=== PATIENT | female | born 2000 | race Caucasian/White ===

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

== ENCOUNTER 2022-03-21 18:56 | Emergency (ER) | payer MEDICAID ==
--- NOTE | 2022-03-21 20:37 | ERPHSYRPT ---
- History of Present Illness Time Seen by Provider: 03/21/22 20:12 Source: patient Exam Limitations: no limitations Patient Subjective Stated Complaint: Patient states " I woke up yesterday with a sorethroat, cough, fatigue and body aches." States she was around 5 family m embers that tested + for COVID over . Triage Nursing Assessment: Patient A/O times 4. Patient able to follow instructions without difficulty. Patient with respiratory complaints of cough, sorethroat, body aches and chills. Denies any SOB. Denies any chest pain. Denies any N/V. Denies any loose stools. Lungs clear bilateral A/P throughout. Denies any nasal drainage. States has been exposed to COVID over [employer]. Physician History: Patient is a 21-year-old female presents emergency department for evaluation of sore throat cough fatigue and body aches. Cough is intermittent and dry. Symptoms have been ongoing for approximately 1-2 days. Patient reports exposure to COVID. Patient was at a [employer] dinner and family members tested positive for lower sick of COVID. Patient otherwise healthy. No rash. Temperature 100.1 today. Patient voices no other complaints concerns at this time. Portions of this note were created with voice recognition technology. There may be grammatical, spelling, punctuation or sound alike errors Timing/Duration: today Severity: moderate Modifying Factors: Improves With: nothing Associated Symptoms: denies symptoms Allergies/Adverse Reactions: No Known Drug Allergies Allergy (Unverified 03/21/22 19:32) Home Medications: No Reportable Medications [No Reported Medications] 03/21/22 [History] Hx Tetanus, Diphtheria Vaccination/Date Given: Yes Hx Influenza Vaccination/Date Given: No Hx Pneumococcal Vaccination/Date Given: No Immunizations Up to Date: Yes Travel Risk - International Travel Have you traveled outside of the country in past 3 weeks: No - Coronavirus Screening Are you exhibiting any of the following symptoms?: Yes Symptoms: Fever, Cough: New Onset, Headaches/Body Aches/Fatigue Close contact with a COVID-19 positive Pt in past 14-21 Days: Yes - Vaccine Status Have you recieved a Covid-19 vaccination: Yes Forensic Structural Engineer: Moderna - Vaccination Dates Date of 2cond Vaccination (if applicable): . - Review of Systems Constitutional: No Symptoms Eyes: No Symptoms Ears, Nose, & Throat: No Symptoms Respiratory: No Symptoms, No Cough, No Dyspnea Cardiac: No Symptoms, No Chest Pain, No Edema, No Syncope Abdominal/Gastrointestinal: No Symptoms, No Abdominal Pain, No Nausea, No Vomiting, No Diarrhea Genitourinary Symptoms: No Symptoms, No Dysuria Musculoskeletal: No Symptoms, No Back Pain, No Neck Pain Skin: No Symptoms, No Rash Neurological: No Symptoms, No Dizziness, No Focal Weakness, No Sensory Changes Psychological: No Symptoms Endocrine: No Symptoms Hematologic/Lymphatic: No Symptoms Immunological/Allergic: No Symptoms All Other Systems: Reviewed and Negative - Past Medical History Pertinent Past Medical History: No Neurological History: No Pertinent History ENT History: No Pertinent History Cardiac History: No Pertinent History Respiratory History: No Pertinent History Endocrine Medical History: No Pertinent History Musculoskeletal History: No Pertinent History GI Medical History: No Pertinent History History: No Pertinent History Psycho-Social History: No Pertinent History Female Reproductive Disorders: No Pertinent History Other Medical History: 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 - Past Surgical History Past Surgical History: No Neuro Surgical History: No Pertinent History Cardiac: No Pertinent History Respiratory: No Pertinent History Gastrointestinal: No Pertinent History Genitourinary: No Pertinent History Musculoskeletal: No Pertinent History Female Surgical History: No Pertinent History Other Surgical History: tubes to ears - Social History Smoking Status: Never smoker Exposure to second hand smoke: No Drug Use: none Patient Lives Alone: No - Female History Hx Last Menstrual Period: 03/15/2022 Hx Now: No - Nursing Vital Signs Nursing Vital Signs: Initial Vital Signs Temperature 100.1 F 03/21/22 18:57 Pulse Rate 102 H 03/21/22 18:57 Respiratory Rate 20 03/21/22 18:57 Blood Pressure 153/70 03/21/22 18:57 O2 Sat by Pulse Oximetry 95 03/21/22 18:57 Pain Scale Pain Intensity 4 - Physical Exam General Appearance: no apparent distress, alert Eye Exam: PERRL/EOMI, eyes nml inspection Ears, Nose, Throat Exam: normal ENT inspection, TMs normal, pharynx normal, moist mucous membranes Neck Exam: normal inspection, non-tender, supple, full range of motion Respiratory Exam: normal breath sounds, lungs clear, No respiratory distress Cardiovascular Exam: regular rate/rhythm, normal heart sounds, normal peripheral pulses Gastrointestinal/Abdomen Exam: soft, normal bowel sounds, No tenderness, No mass Back Exam: normal inspection, normal range of motion, No CVA tenderness, No vertebral tenderness Extremity Exam: normal inspection, normal range of motion, pelvis stable Neurologic Exam: alert, oriented x 3, cooperative, normal mood/affect, nml cerebellar function, nml station & gait, sensation nml, No motor deficits Skin Exam: normal color, warm, dry, No rash Lymphatic Exam: No adenopathy SpO2 Interpretation: normal SpO2: 96 O2 Delivery: Room Air - Course Nursing assessment & vital signs reviewed: Yes Lab/Rad Data: Laboratory Results 03/21/22 03/21/22 Range/Units 19:50 19:50 Influenza Type A Ag NEGATIVE (NEGATIVE) Influenza Type B Ag NEGATIVE (NEGATIVE) RSV (PCR) NEGATIVE (Negative) SARS-CoV-2 (PCR) NEGATIVE (NEGATIVE) Group A Strep Antibody NOT DETECTED (NEGATIVE) - Progress Progress: improved Progress Note: Viral panel and strep test negative. No indication for further work-up. Patient appears well in no acute distress. Supportive care only. Tylenol Motrin as needed. Patient instructed on good hydration. Mother at bedside. They voiced no other complaints or concerns at this time. Mother agrees to follow-up with primary care doctor within 48 hours for evaluation. Portions of this note were created with voice recognition technology. There may be grammatical, spelling, punctuation or sound alike errors 03/21/22 20:46 Counseled pt/family regarding: lab results, diagnosis, need for follow-up - Departure Departure Disposition: Home Clinical Impression: Viral syndrome Condition: Stable Critical Care Time: No Referrals: MARVIN TINAJERO [Primary Care Provider] - Follow up/PCP as directed Additional Instructions: Discharge/Care Plan LANEBILLYROSENDA MEGAN was seen on 03/21/22 in the Emergency Room. The patient was counseled regarding Diagnosis,Lab results, Imaging studies, need for follow up and when to return to the Emergency Room. Prescriptions given: Discharge Note I have spoken with the patient and/or caregivers. I have explained the patient's condition, diagnosis and treatment plan based on the information available to me at this time. I have answered the patient's and/or caregiver's questions and addressed any concerns. The patient and/or caregivers have as good understanding of the patient's diagnosis, condition and treatment plan as can be expected at this point. The vital signs have been stable. The patient's condition is stable and appropriate for discharge from the emergency department. The patient will pursue further outpatient evaluation with the primary care physician or other designated or consulting physician as outlined in the discharge instructions. The patient and/or caregivers are agreeable to this plan of care and follow-up instructions have been explained in detail. The patient and/or caregivers have received these instruction. The patient/and or caregivers are aware that any significant change in condition or worsening of symptoms should prompt an immediate return to this or the closest emergency department or call 911.
[2022-03-21 20:39] LABS: INFLUENZA A NEGATIVE (NEGATIVE); INFLUENZA B NEGATIVE (NEGATIVE); RESPIRATORY SYNCTIAL VIRUS NEGATIVE (Negative); SARS-CoV-2 Xpert Express NEGATIVE (NEGATIVE)
[2022-03-21 21:14] VITALS: BP 107/57; O2SAT 97
[2022-03-21 21:24] VITALS: PULSE 93
== END 2022-03-21 21:10 | disposition home or self-care (01) ==
LOC: ED 18:56
DX: B34.9 Viral infection, unspecified (principal); J02.9 Acute pharyngitis, unspecified; R05.1 Acute cough; R53.83 Other fatigue; M79.10 Myalgia, unspecified site; Z20.822 Contact with and (suspected) exposure to COVID-19; R50.9 Fever, unspecified
CPT/HCPCS: 0241U; 87651; 99282

== ENCOUNTER 2024-03-06 12:44 | Emergency (ER) | payer MEDICAID ==
[2024-03-06] MEDS: BABY ASPIRIN 81 MG CHEW PO ONE (13:12)
[2024-03-06] MEDS ORDERED: BABY ASPIRIN 81 MG CHEW ONE (13:12)
[2024-03-06 13:18] LABS: Absolute Neutrophil Ct (ANC) 6.51 x10^3/uL (1.56-6.13); BASOPHIL % 0.4 % (0.1-1.2); Basophil (Absolute #) 0.03 x10^3/uL (0.01-0.08); Eosinophil (Absolute #) 0 x10^3/uL (0.04-0.36); Hematocrit 41.5 % (34.1-44.9); Hemoglobin 13.9 g/dL (11.2-15.7); IMMATURE GRAN # 0.02 x10^3u/L (0.001-0.031); IMMATURE GRAN % 0.2 % (0.001-0.429); Lymphocyte (Absolute #) 1.21 x10^3/uL (1.18-3.74); Lymphocytes % 14.8 % (19.3-51.7); Mean Cell Volume 84.3 fL (79.4-94.8); Mean Corpuscular Hemoglobin 28.3 pg (25.6-32.2); Mean Corpuscular Hgb Concent. 33.5 g/dL (32.2-35.5); Mean Platelet Volume 11.3 fL (9.4-12.3); Monocyte (Absolute #) 0.38 x10^3/uL (0.24-0.86); Monocytes % 4.7 % (4.7-12.5); Neutrophil % 79.9 % (34.0-71.1); Platelet Count 360 x10^3/uL (182-369); Red Blood Count 4.92 x10^6/uL (3.93-5.22); Red Cell Distribution Width 12.8 % (11.7-14.4); White Blood Count 8.2 x10^3/uL (3.98-10.04)
--- NOTE | 2024-03-06 13:24 | ERPHSYRPT ---
- History of Present Illness Time Seen by Provider: 03/06/24 12:59 Historian: patient Exam Limitations: no limitations Patient Subjective Stated Complaint: Chest pain, high blood pressure Triage Nursing Assessment: 23 yr old female pt arrives to ED via POV. Pt presesnts with complaints of chest pain and high blood pressure. Pt states that she was recently seen by Rekha Covington NP and was told about her blood pressure being high. Pt has not had any other issues until she was at work today and started having chest pain. Pt is alert, oriented and not in distress. Physician History: 23-year-old healthy female presented in the ER with complaints of elevated blood pressure and chest pain. Patient reports she has been dealing with high blood pressure for last couple of weeks and her blood pressure was 150s earlier today and started to have some chest discomfort across the chest with some radiation to the left axillary area almost an hour prior to arrival at home. Chest pain started to improve. Denies any associated difficulty breathing or palpitations. Patient was seen at primary care office few days ago with high blood pressure and was recommended to monitor at home. Patient blood pressure on presentation in the ER is 129 systolic. No fever chills or cough reported. Nitro Today/Relief: no nitro taken today Aspirin Treatment Today: no aspirin today Allergies/Adverse Reactions: No Known Drug Allergies Allergy (Unverified 03/06/24 12:54) Hx Tetanus, Diphtheria Vaccination/Date Given: Yes Hx Influenza Vaccination/Date Given: No Hx Pneumococcal Vaccination/Date Given: No Immunizations Up to Date: Yes Travel Risk - International Travel Have you traveled outside of the country in past 3 weeks: No - Emerging Infectious Disease Are you exhibiting symptoms associated with any current EIDs: No - Review of Systems Constitutional: No Symptoms Eyes: No Symptoms Ears, Nose, & Throat: No Symptoms Respiratory: No Symptoms Cardiac: Chest Pain Abdominal/Gastrointestinal: No Symptoms Genitourinary Symptoms: No Symptoms Musculoskeletal: No Symptoms Skin: No Symptoms Neurological: No Symptoms Psychological: No Symptoms Endocrine: No Symptoms Hematologic/Lymphatic: No Symptoms - Past Medical History Pertinent Past Medical History: No Neurological History: No Pertinent History ENT History: No Pertinent History Cardiac History: Hypertension Respiratory History: No Pertinent History Endocrine Medical History: No Pertinent History Musculoskeletal History: No Pertinent History GI Medical History: No Pertinent History History: No Pertinent History Psycho-Social History: No Pertinent History Female Reproductive Disorders: No Pertinent History Other Medical History: 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, 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 - Past Surgical History Past Surgical History: Yes Neuro Surgical History: No Pertinent History Cardiac: No Pertinent History Respiratory: No Pertinent History Gastrointestinal: No Pertinent History Genitourinary: No Pertinent History Musculoskeletal: No Pertinent History Female Surgical History: No Pertinent History Other Surgical History: tubes to ears - Female History Hx Last Menstrual Period: 02/28/24 Hx Now: (unkn) - Social History Smoking Status: Never smoker Exposure to second hand smoke: No Drug Use: none Patient Lives Alone: No - Social Determinants of Health Will the patient participate in the screening: Declined to provide - Nursing Vital Signs Nursing Vital Signs: Initial Vital Signs Pulse Rate 114 H 03/06/24 12:53 Respiratory Rate 20 03/06/24 12:53 Blood Pressure 155/88 03/06/24 12:53 O2 Sat by Pulse Oximetry 97 03/06/24 12:53 Pain Scale Pain Intensity 0 - Physical Exam General Appearance: no apparent distress, alert, anxiety Eye Exam: PERRL/EOMI Ears, Nose, Throat Exam: normal ENT inspection, pharynx normal, moist mucous membranes Neck Exam: normal inspection, non-tender, supple, full range of motion Respiratory Exam: normal breath sounds, lungs clear Cardiovascular Exam: regular rate/rhythm, normal heart sounds Gastrointestinal/Abdomen Exam: soft, normal bowel sounds, No tenderness Back Exam: normal inspection, normal range of motion Extremity Exam: normal range of motion Neurologic Exam: alert, oriented x 3, cooperative, staffing and scheduling coordinator II-XII nml as tested Skin Exam: normal color SpO2 Interpretation: normal SpO2: 96 O2 Delivery: Room Air - Course EKG Interpreted by Me: RATE ([id number]), Sinus Rhythm, NORMAL AXIS, NORMAL INTERVALS, NORMAL QRS Ordered Tests: Active Orders 24 hr Category Date Time Status Oral Therapist STAT Care 03/06/24 13:08 Active EKG-ER Only STAT Care 03/06/24 13:08 Active CHEST 1 VIEW (PORTABLE) Stat Exams 03/06/24 13:08 Completed CBC W DIFF Stat Lab 03/06/24 13:10 Completed CMP Stat Lab 03/06/24 13:10 Completed D-DIMER QUANTITATIVE Stat Lab 03/06/24 13:26 Completed HCG QUALITATIVE, URINE Stat Lab 03/06/24 14:12 Completed NT PRO BNPII Stat Lab 03/06/24 13:10 Completed TROPONIN Q4H Lab 03/06/24 13:10 Completed TROPONIN Q4H Lab 03/06/24 15:55 Completed TROPONIN Q4H Lab 03/06/24 21:15 Ordered Medication Summary Discontinued Medications Generic Name Dose Route Start Last Admin Trade Name Casandra PRN Reason Stop Dose Admin Al Hydrox/Mg Hydrox/Simethicone Confirm 03/06/24 15:17 Mag Hydrox/Al Hydrox/Simeth 30 Ml Udcup Administered 03/06/24 15:18 Dose 30 ml .ROUTE .STK-MED ONE Aspirin 324 mg 03/06/24 13:08 03/06/24 13:12 Aspirin 81 Mg Tab.Chew PO 03/06/24 13:09 324 mg STAT ONE Administration Aspirin Confirm 03/06/24 13:12 Aspirin 81 Mg Tab.Chew Administered 03/06/24 13:13 Dose 324 mg .ROUTE .STK-MED ONE Lidocaine HCl Confirm 03/06/24 15:17 Lidocaine Hcl 2% Viscous 15 Ml Udcup Administered 03/06/24 15:18 Dose 15 ml .ROUTE .STK-MED ONE Magnesium Hydroxide 45 ml 03/06/24 15:05 03/06/24 15:19 Mag Hydrx/Alum Hyd/Simeth/Lido 45 Ml Bottle PO 03/06/24 15:06 45 ml STAT ONE Administration Lab/Rad Data: Laboratory Result Diagrams 03/06/24 13:10 03/06/24 13:10 Laboratory Results 03/06/24 03/06/24 03/06/24 Range/Units 15:55 14:12 13:26 WBC (3.98-10.04) x10^3/uL RBC (3.93-5.22) x10^6/uL Hgb (11.2-15.7) g/dL Hct (34.1-44.9) % MCV (79.4-94.8) fL MCH (25.6-32.2) pg MCHC (32.2-35.5) g/dL RDW (11.7-14.4) % Plt Count (182-369) x10^3/uL MPV (9.4-12.3) fL Gran % (34.0-71.1) % Immature Gran % (Auto) (0.001-0.429) % Nucleat RBC Rel Count (0.00-0.2) % Eos # (Auto) (0.04-0.36) x10^3/uL Immature Gran # (Auto) (0.001-0.031) x10^3u/L Absolute Lymphs (auto) (1.18-3.74) x10^3/uL Absolute Monos (auto) (0.24-0.86) x10^3/uL Absolute Nucleated RBC (0.00-0.012) x10^3u/L Lymphocytes % (19.3-51.7) % Monocytes % (4.7-12.5) % Eosinophils % (0.7-5.8) % Basophils % (0.1-1.2) % Absolute Granulocytes (1.56-6.13) x10^3/uL Basophils # (0.01-0.08) x10^3/uL D-Dimer 0.25 (0.0-0.50) mg/L Sodium (135-145) mmol/L Potassium (3.5-5.1) mmol/L Chloride (98-107) mmol/L Carbon Dioxide (22-30) mmol/L Anion Gap (5-15) MEQ/L BUN (7-17) mg/dL Creatinine (0.52-1.04) mg/dL Estimated GFR ML/MIN Glucose (74-106) mg/dL Calcium (8.4-10.2) mg/dL Total Bilirubin (0.2-1.3) mg/dL AST (14-36) U/L ALT (0-35) U/L Alkaline Phosphatase (38-126) U/L Troponin I < 0.012 (0.000-0.033) ng/mL NT-Pro-B Natriuret Pep (<300) pg/mL Serum Total Protein (6.3-8.2) g/dL Albumin (3.5-5.0) g/dL Urine HCG, Qual NEGATIVE (NEGATIVE) 03/06/24 03/06/24 03/06/24 Range/Units 13:10 13:10 13:10 WBC 8.2 (3.98-10.04) x10^3/uL RBC 4.92 (3.93-5.22) x10^6/uL Hgb 13.9 (11.2-15.7) g/dL Hct 41.5 (34.1-44.9) % MCV 84.3 (79.4-94.8) fL MCH 28.3 (25.6-32.2) pg MCHC 33.5 (32.2-35.5) g/dL RDW 12.8 (11.7-14.4) % Plt Count 360 (182-369) x10^3/uL MPV 11.3 (9.4-12.3) fL Gran % 79.9 H (34.0-71.1) % Immature Gran % (Auto) 0.2 (0.001-0.429) % Nucleat RBC Rel Count 0.0 (0.00-0.2) % Eos # (Auto) 0 L (0.04-0.36) x10^3/uL Immature Gran # (Auto) 0.02 (0.001-0.031) x10^3u/L Absolute Lymphs (auto) 1.21 (1.18-3.74) x10^3/uL Absolute Monos (auto) 0.38 (0.24-0.86) x10^3/uL Absolute Nucleated RBC 0.00 (0.00-0.012) x10^3u/L Lymphocytes % 14.8 L (19.3-51.7) % Monocytes % 4.7 (4.7-12.5) % Eosinophils % 0.0 L (0.7-5.8) % Basophils % 0.4 (0.1-1.2) % Absolute Granulocytes 6.51 H (1.56-6.13) x10^3/uL Basophils # 0.03 (0.01-0.08) x10^3/uL D-Dimer (0.0-0.50) mg/L Sodium 139 (135-145) mmol/L Potassium 4.1 (3.5-5.1) mmol/L Chloride 103 (98-107) mmol/L Carbon Dioxide 22 (22-30) mmol/L Anion Gap 17.8 H (5-15) MEQ/L BUN 9 (7-17) mg/dL Creatinine 0.78 (0.52-1.04) mg/dL Estimated GFR 110.8 ML/MIN Glucose 107 H (74-106) mg/dL Calcium 10.1 (8.4-10.2) mg/dL Total Bilirubin 0.60 (0.2-1.3) mg/dL AST 26 (14-36) U/L ALT 21 (0-35) U/L Alkaline Phosphatase 61 (38-126) U/L Troponin I < 0.012 (0.000-0.033) ng/mL NT-Pro-B Natriuret Pep 44.0 (<300) pg/mL Serum Total Protein 7.9 (6.3-8.2) g/dL Albumin 4.7 (3.5-5.0) g/dL Urine HCG, Qual (NEGATIVE) - Progress Progress: improved Air Movement: good Progress Note: 23-year-old is evaluated in the ER for chest pain and elevated blood pressure. The EKG is sinus rhythm with no ST elevations. Patient's blood pressure is in 120s and 130s throughout her stay in the ER. Workup showed normal white count, fairly unremarkable chemistries except for mild element of dehydration, recommended increase oral intake. Negative troponins x 2 and D-dimers. Chest x-ray negative for any acute cardiopulmonary findings. She is given aspirin and GI cocktail, on reevaluation she is remarkably improved. Part of patient's symptoms are secondary to anxiety as well. Recommended monitoring of blood pressure, keeping a log and outpatient follow-up. She is low heart score, do not think she needs further workup in the ER or inpatient admission, recommended outpatient follow-up. Discussed signs symptoms of worsening needing return to ER which she seems understanding. Stable for discharge. 03/06/24 16:35 Blood Culture(s) Obtained: No Antibiotics given: No Counseled pt/family regarding: lab results, diagnosis, rad results Medical Desision Making - Independent Historian Additional History obtained from: Mother - Diagnostic Testing Diagnostic test were ordered, analyzed, and reviewed by me: Yes Radiological Interpretation: Reviewed by me - Risk of complications The pt has a mod risk of morbidity or mortality based on: Need for prescription drug management - Departure Departure Disposition: Home Clinical Impression: Atypical chest pain Condition: Stable Critical Care Time: No Referrals: MARVIN TINAJERO [Primary Care Provider] - Follow up with PCP 1 day Instructions: Chest Pain (DC) Additional Instructions: Take Tylenol as needed. Take Pepcid as needed. Follow-up with primary care for reevaluation. Monitor your blood pressure regularly, keep a log and follow-up with PCP. Return to ER for worsening chest pain, uncontrolled blood pressure, headache, visual disturbance etc. Prescriptions: Famotidine 20 mg [Pepcid 20 MG] 20 mg PO BID #14 tablet
[2024-03-06 13:41] LABS: ALBUMIN 4.7 g/dL (3.5-5.0); ANION GAP 17.8 MEQ/L (5-15); BILIRUBIN,TOTAL 0.6 mg/dL (0.2-1.3); Calcium 10.1 mg/dL (8.4-10.2); Creatinine 1 0.78 mg/dL (0.52-1.04); EST GLOMERULAR FILTRATION RATE 110.8 ML/MIN; Potassium 4.1 mmol/L (3.5-5.1); Total Protein 7.9 g/dL (6.3-8.2)
[2024-03-06 14:12] LABS: HCG URINE TEST NEGATIVE (NEGATIVE)
--- NOTE | 2024-03-06 14:45 | XRAY ---
Indication: Chest pain. Comparison: None Portable chest demonstrates normal heart, lungs, and bony thorax.
[2024-03-06 15:12] VITALS: O2SAT 96
[2024-03-06] MEDS ORDERED: MAALOX ES 30 ML UNIT DOSE ONE (15:17)
[2024-03-06] MEDS ORDERED: XYLOCAINE VISCOUS 2% 15 ML CUP ONE (15:17)
[2024-03-06] MEDS: GI COCKTAIL 45 ML (Maalox/Lidocaine) PO ONE (15:19)
[2024-03-06 16:34] VITALS: BP 133/80; PULSE 91; RESP 23
== END 2024-03-06 16:49 | disposition home or self-care (01) ==
LOC: ED 12:44
DX: R07.89 Other chest pain (principal); I10 Essential (primary) hypertension; Z79.899 Other long term (current) drug therapy
CPT/HCPCS: 36415; 71045; 80053; 81025; 83880; 84484; 85025; 85379; 93005; 93041; 99284; 99285; A9270-GY